=== PATIENT | female | born 1995 | race Caucasian/White ===

== ENCOUNTER 2020-09-07 12:06 | Emergency (ER) | payer OTHER ==
[~2020-09-07] VITALS: Ht 167.6 cm; Wt 57.6 kg
[2020-09-07 12:22] VITALS: BP_SYST 130
--- NOTE | 2020-09-07 12:22 | NUR ---
Placed in room 7 . Placed on load tallier, blood pressure machine and pulse oximeter. To gown for exam. Side rails up.
--- NOTE | 2020-09-07 12:30 | NUR ---
PT CAME IN FROM HOME, C/O LOWER ABD PAIN WITH MENSTRAL CYCLE ACCOMPANIED BY NAUSEA, DIZZINESS. SHE STATES SHE THREW UP ONCE PRIOR TO ARRIVAL. PT IS AAOX4, V/S STABLE
--- NOTE | 2020-09-07 13:05 | NUR ---
ER DR. COREA AT THE BEDSIDE EXAMINING PT
[2020-09-07 13:35] LABS: BILIRUBIN,URINE NEGATIVE (NEGATIVE); BLOOD, URINE 3+ (NEGATIVE); CLARITY/URINE CLOUDY (CLEAR); COLOR,URINE YELLOW (YELLOW); GLUCOSE,URINE NEGATIVE (NEGATIVE); KETONES,URINE NEGATIVE (NEGATIVE); LEUKOCYTE ESTERASE ,URINE NEGATIVE (NEGATIVE); NITRITE, URINE NEGATIVE (NEGATIVE); PH,URINE 8.5 (5.0-8.0); PROTEIN URINE TRACE (NEGATIVE); UROBILINOGEN,URINE 0.2 (0.2-1.0)
[2020-09-07 13:45] LABS: BASOPHILS % (AUTO) 0.1 % (0.0-2.0); EOSINOPHILS % (AUTO) 0.4 % (0.0-4.0); HEMATOCRIT 39.6 % (36-48); HEMOGLOBIN 13.3 g/dL (12.0-16.0); LYMPHOCYTES % (AUTO) 12.2 % (20.5-51.5); MEAN CORPUSCULAR HEMOGLOBIN 32 pg (27-31); MEAN CORPUSCULAR HGB CONC 34 % (32-36); MEAN CORPUSCULAR VOLUME 96 fL (79.0-98.0); MONOCYTES # (AUTO) 0.3 K/uL (0.0-1.0); MONOCYTES % (AUTO) 4.1 % (1.7-9.3); NEUTROPHILS # (AUTO) 7.1 K/uL (1.8-7.7); NEUTROPHILS % (AUTO) 83.2 % (40.0-70.0); PLATELET COUNT (AUTO) 160 K/uL (130-430); RED BLOOD CELL COUNT(AUTO) 4.12 MIL/uL (4.2-6.2); RED CELL DISTRIBUTION WIDTH 12.5 % (9.0-15.0); WHITE BLOOD COUNT (AUTO) 8.5 K/uL (4.8-10.8)
--- NOTE | 2020-09-07 13:45 | NUR ---
PT RESTING IN BED, NO S/SX OF DISTRESS, V/S STABLE
[2020-09-07 14:02] LABS: BACTERIA,URINE FEW /HPF (None Seen); RBC,URINE 50-80 /HPF (0-3); WBC,URINE 0-3 /HPF (0-3)
[2020-09-07 14:05] LABS: C-REACTIVE PROTEIN QUANT 0.4 mg/dL (0-0.5)
[2020-09-07 14:10] LABS: CALCIUM 8.9 mg/dL (8.4-11.0); CREATININE 0.98 mg/dL (0.55-1.30); POTASSIUM 4.5 mmol/L (3.5-5.1)
[2020-09-07 14:13] LABS: PROTHROMBIN TIME 10.4 SECS (9.5-12.5)
[2020-09-07 14:15] LABS: ALBUMIN 3.8 g/dL (3.4-4.8); TOTAL BILIRUBIN 0.3 mg/dL (0.0-1.0)
[2020-09-07] MEDS ORDERED: IBUP-1969 PO (14:51)
[2020-09-07] MEDS ORDERED: HYDR-3917 PO (14:51)
[2020-09-07 14:56] VITALS: BP_SYST 130
--- NOTE | 2020-09-07 14:58 | NUR ---
Patient given written and verbal discharge instructions and verbalizes understanding. ER MD discussed with patient the results and treatment provided. Patient in stable condition. ID arm band removed. Rx of NORCO AND IBUPROFEN given. Patient educated on pain management and to follow up with PMD. Pain Scale 3/10. Opportunity for questions provided and answered. Medication side effect fact sheet provided.
== END 2020-09-07 14:58 | disposition home or self-care (01) ==
LOC: SED 12:06
DX: R10.2 Pelvic and perineal pain (principal); Z79.899 Other long term (current) drug therapy
CPT/HCPCS: 36415; 76376; 80053; 81000; 82150; 83690; 84703; 85025; 85610-TC; 85730-TC; 86140; 99284